=== PATIENT | female | born 1945 | race Caucasian/White ===

== ENCOUNTER → 2016-08-05 | Outpatient (CLI) | payer MEDICARE, OTHER | END | disposition home or self-care (01) | LOC: PCVCCLINIC 11:58 | PROVIDERS: ATTEND Internal Medicine Cardiovascular Disease | DX: I48.91 Unspecified atrial fibrillation (principal); I10 Essential (primary) hypertension; I65.8 Occlusion and stenosis of other precerebral arteries; Z79.82 Long term (current) use of aspirin; Z79.899 Other long term (current) drug therapy; Z90.710 Acquired absence of both cervix and uterus; Z96.653 Presence of artificial knee joint, bilateral; Z87.891 Personal history of nicotine dependence | CPT/HCPCS: 80061; 93005; G0463 ==

== ENCOUNTER → 2016-08-11 | Outpatient (CLI) | payer MEDICARE, OTHER ==
--- NOTE | 2016-08-11 19:36 | PCVCIMAG ---
APPROVED REPORT Study performed: 08/11/2016 16:00:30 EXAM: Comprehensive 2D, Doppler, and color-flow Echocardiogram Status: routine Indications Dyspnea Atrial Fibrillation 2D Dimensions IVSd: 14.69 (7-11mm) LVDd: 39.16 mm PWd: 13.63 (7-11mm) LVDs: 33.25 (25-40mm) Left Atrium: 45.24 (27-40mm) Aortic Root: 34.47 mm LV Single Plane 4CH: 42.90 % LV Single Plane 2CH: 44.49 %Gonsales's LVEF: 43.69 % Biplane EF: 43.3 % Volumes Left Atrial Volume (Systole) Single Plane 4CH: 103.63 mLSingle Plane 2CH: 95.01 mL LA ESV Index: 46.00 mL/m2 Aortic Valve AoV Peak Vargas.: 1.45 m/s AO Peak Gr.: 8.91 mmHgLVOT Max P.65 mmHg LVOT Max V: 0.95 m/s Pulmonary Valve PV Peak Vargas.: 0.82 m/sPV Peak Gr.: 2.75 mmHg Tricuspid Valve TR Peak Vargas.: 2.44 m/s TR Peak Gr.: 24.20 mmHg Left Ventricle The left ventricle is normal size. There is normal LV segmental wall motion. Moderate concentric left ventricular hypertrophy. Left ventricular systolic function is normal. The left ventricular ejection fraction is within the lower limits of normal range. Globally mildly decreased. LVEF is 45-50%. The left ventricular diastolic function is normal. Right Ventricle The right ventricle is normal size. The right ventricular systolic function is normal. Atria Left atrium is moderately- severely dilated. The right atrium size is mildly dilated. Aortic Valve The aortic valve is normal in structure. No aortic regurgitation is present. There is no aortic valvular stenosis. Mitral Valve Moderate posterior mitral annular calcification. Mild to moderate mitral regurgitation. No evidence of mitral valve stenosis. Tricuspid Valve The tricuspid valve is normal in structure. Mild tricuspid regurgitation with PAP of 34 mmHg. Pulmonic Valve The pulmonary valve is normal in structure. There is no pulmonic valvular regurgitation. Great Vessels The aortic root is normal in size. IVC is normal in size and collapses with >50% inspiration Pericardium There is no pericardial effusion. <Conclusion> The left ventricle is normal size. Moderate concentric left ventricular hypertrophy. Moderate concentric left ventricular hypertrophy. Left ventricular systolic function is normal. The left ventricular ejection fraction is within the lower limits of normal range. Globally mildly decreased. LVEF is 45-50%. The right ventricle is normal size. Left atrium is moderately- severely dilated. The right atrium size is mildly dilated. The aortic valve is normal in structure. Mild to moderate mitral regurgitation. Mild tricuspid regurgitation with PAP of 34 mmHg. IVC is normal in size and collapses with >50% inspiration
== END | disposition home or self-care (01) ==
LOC: PCVCIMAG 15:54
PROVIDERS: ATTEND Internal Medicine Cardiovascular Disease
DX: I48.91 Unspecified atrial fibrillation (principal)
CPT/HCPCS: 93306

== ENCOUNTER → 2016-09-01 | Outpatient (CLI) | payer MEDICARE, OTHER | END | disposition home or self-care (01) | LOC: PCVCCLINIC 15:15 | PROVIDERS: ATTEND Internal Medicine Cardiovascular Disease | DX: I10 Essential (primary) hypertension (principal); I48.1 Persistent atrial fibrillation; E78.4 Other hyperlipidemia; G47.33 Obstructive sleep apnea (adult) (pediatric); R01.1 Cardiac murmur, unspecified; Z87.891 Personal history of nicotine dependence; Z79.899 Other long term (current) drug therapy | CPT/HCPCS: 80061; 93005; G0463 ==

== ENCOUNTER → 2017-05-24 | Outpatient (CLI) | payer MEDICARE, OTHER | END | disposition home or self-care (01) | LOC: PCVCCLINIC 15:05 | DX: I48.91 Unspecified atrial fibrillation (principal); E78.00 Pure hypercholesterolemia, unspecified; G47.33 Obstructive sleep apnea (adult) (pediatric); I08.1 Rheumatic disorders of both mitral and tricuspid valves; R94.31 Abnormal electrocardiogram [ECG] [EKG]; Z87.891 Personal history of nicotine dependence; Z79.899 Other long term (current) drug therapy | CPT/HCPCS: 80061; 93005; G0463 ==

== ENCOUNTER → 2017-06-28 | Outpatient (CLI) | payer MEDICARE, OTHER | END | disposition home or self-care (01) | LOC: PCVCCLINIC 13:13 | DX: Z01.818 Encounter for other preprocedural examination (principal); I48.91 Unspecified atrial fibrillation; R06.02 Shortness of breath; I87.303 Chronic venous hypertension (idiopathic) without complications of bilateral lower extremity; I10 Essential (primary) hypertension; R94.31 Abnormal electrocardiogram [ECG] [EKG]; I08.1 Rheumatic disorders of both mitral and tricuspid valves; G47.33 Obstructive sleep apnea (adult) (pediatric); Z87.891 Personal history of nicotine dependence; Z79.899 Other long term (current) drug therapy | CPT/HCPCS: 93005; G0463 ==

== ENCOUNTER → 2017-07-05 | Outpatient (CLI) | payer MEDICARE, OTHER | END | disposition home or self-care (01) | LOC: PCVCIMAG 14:02 | DX: Z01.818 Encounter for other preprocedural examination (principal); I10 Essential (primary) hypertension; R06.00 Dyspnea, unspecified; G47.33 Obstructive sleep apnea (adult) (pediatric); E78.5 Hyperlipidemia, unspecified | CPT/HCPCS: 93306 ==

== ENCOUNTER → 2018-03-17 | Outpatient (CLI) | payer MEDICARE, OTHER | END | disposition home or self-care (01) | LOC: PCVCCLINIC 12:00 | PROVIDERS: ATTEND Internal Medicine Cardiovascular Disease | DX: I48.0 Paroxysmal atrial fibrillation (principal); I10 Essential (primary) hypertension; E78.00 Pure hypercholesterolemia, unspecified; G47.33 Obstructive sleep apnea (adult) (pediatric); R06.02 Shortness of breath; J45.909 Unspecified asthma, uncomplicated; E66.9 Obesity, unspecified; Z79.899 Other long term (current) drug therapy; Z87.891 Personal history of nicotine dependence | CPT/HCPCS: 36415; 80061; 93005; G0463 ==

== ENCOUNTER → 2018-06-13 | Outpatient (CLI) | payer MEDICARE, OTHER | END | disposition home or self-care (01) | LOC: PCVCCLINIC 14:52 | PROVIDERS: ATTEND Internal Medicine Cardiovascular Disease | DX: I48.0 Paroxysmal atrial fibrillation (principal); R60.0 Localized edema; I87.303 Chronic venous hypertension (idiopathic) without complications of bilateral lower extremity; I10 Essential (primary) hypertension; G47.33 Obstructive sleep apnea (adult) (pediatric); J45.909 Unspecified asthma, uncomplicated; E78.5 Hyperlipidemia, unspecified | CPT/HCPCS: 93005; G0463 ==

== ENCOUNTER → 2018-06-15 | Outpatient (CLI) | payer MEDICARE, OTHER ==
--- NOTE | 2018-06-15 15:16 | PCVCIMAG ---
EXAM: BILATERAL LOWER EXTREMITY ARTERIAL DUPLEX INDICATION: Peripheral Arterial Disease. Leg pain. Nonhealing ulcer left lower leg. FINDINGS: Right Leg: Satisfactory arterial waveforms throughout the common/profunda/superficial femoral, popliteal, anterior tibial, peroneal, and posterior tibial arteries. No flow limiting stenosis seen. Left Leg: Satisfactory arterial waveforms throughout the common/profunda/superficial femoral, popliteal, anterior tibial, peroneal, and posterior tibial arteries. No flow limiting stenosis seen. IMPRESSION: No flow limiting stenosis in the right lower extremity. No flow limiting stenosis in the left lower extremity. LOC:[id number]
== END | disposition home or self-care (01) ==
LOC: PCVCIMAG 15:00
PROVIDERS: ATTEND Emergency Medicine
DX: I73.9 Peripheral vascular disease, unspecified (principal); L97.909 Non-pressure chronic ulcer of unspecified part of unspecified lower leg with unspecified severity; S85.8 Injury of other blood vessels at lower leg level; R60.0 Localized edema; X58.XXXA Exposure to other specified factors, initial encounter; Y93.89 Activity, other specified; Y92.89 Other specified places as the place of occurrence of the external cause; Y99.8 Other external cause status
CPT/HCPCS: 93925

== ENCOUNTER → 2018-09-19 | Outpatient (CLI) | payer MEDICARE, OTHER ==
--- NOTE | 2018-09-19 11:10 | PCVCIMAG ---
APPROVED REPORT Study performed: 09/19/2018 10:31:58 EXAM: Comprehensive 2D, Doppler, and color-flow Echocardiogram Patient Location: Echo lab Status: routine BSA: 2.24 HR: 58 bpmBP: 138/78 mmHg Rhythm: Bradycardia Other Information Study Quality: Adequate Risk Factors: Cardiac Risk Factors: HTN Indications Atrial Fibrillation Dyspnea obesity, edema 2D Dimensions IVSd: 13.08 (7-11mm) LVDd: 41.35 mm PWd: 13.08 (7-11mm)Ascending Ao: 38.42 (22-36mm) LVDs: 27.94 (25-40mm) Left Atrium: 45.47 (27-40mm) Aortic Root: 33.56 mm LV Single Plane 4CH: 57.78 % LV Single Plane 2CH: 56.94 % Biplane EF: 57.6 % Volumes Left Atrial Volume (Systole) Single Plane 4CH: 125.82 mLSingle Plane 2CH: 85.24 mL LA ESV Index: 48.00 mL/m2 Aortic Valve AoV Peak Vargas.: 2.28 m/s AO Peak Gr.: 20.78 mmHgLVOT Max P.73 mmHg LVOT Max V: 1.64 m/s Mitral Valve E/A Ratio: 0.8 MV Decel. Time: 259.18 ms MV E Max Vargas.: 0.92 m/s MV A Vargas.: 1.19 m/s IVRT: 100.35 ms Pulmonary Valve PV Peak Vargas.: 0.92 m/sPV Peak Gr.: 3.37 mmHg Pulmonary Vein P Vein S: 0.39 m/sP Vein A: 0.29 m/s P Vein D: 0.53 m/sP Vein A Dur.: 141.9 msec P Vein S/D Ratio: 0.74 Tricuspid Valve TR Peak Vargas.: 2.93 m/s TR Peak Gr.: 34.42 mmHg TV Vmax: 0.80 m/s Left Ventricle The left ventricle is normal size. There is normal LV segmental wall motion. Mild concentric left ventricular hypertrophy. Left ventricular systolic function is normal. The left ventricular ejection fraction is within the normal range. LVEF is 55-60%. Grade I - abnormal relaxation pattern. Right Ventricle The right ventricle is normal size. The right ventricular systolic function is normal. Atria Left atrium is severely dilated. Right atrium is moderately dilated. Aortic Valve The aortic valve is mildly sclerotic. Mild aortic regurgitation. There is no aortic valvular stenosis. LVOT velocity is mildly increased but no obstruction with valsalva maneuver. Mitral Valve The mitral valve is normal in structure. Mild mitral regurgitation. No evidence of mitral valve stenosis. Tricuspid Valve The tricuspid valve is normal in structure. Mild tricuspid regurgitation with PAP of 41 mmHg. Pulmonic Valve The pulmonary valve is normal in structure. There is trace pulmonic valvular regurgitation. Great Vessels The aortic root is normal in size. The ascending aorta is borderline dilated to 3.9 cm. IVC is normal in size and collapses >50% with inspiration. Pericardium There is no pericardial effusion. There is no pleural effusion. <Conclusion> The left ventricle is normal size. LVEF is 55-60%. Grade I - abnormal relaxation pattern. The right ventricle is normal size. Left atrium is severely dilated. Right atrium is moderately dilated. The aortic valve is mildly sclerotic. Mild aortic regurgitation. There is no aortic valvular stenosis. LVOT velocity is mildly increased but no obstruction with valsalva maneuver. Mild mitral regurgitation. Mild tricuspid regurgitation with PAP of 41 mmHg. The aortic root is normal in size. The ascending aorta is borderline dilated to 3.9 cm. There is no pericardial effusion.
== END | disposition home or self-care (01) ==
LOC: PCVCIMAG 10:20
PROVIDERS: ATTEND Internal Medicine Cardiovascular Disease
DX: I08.3 Combined rheumatic disorders of mitral, aortic and tricuspid valves (principal); I48.0 Paroxysmal atrial fibrillation; I10 Essential (primary) hypertension; E78.00 Pure hypercholesterolemia, unspecified; I87.2 Venous insufficiency (chronic) (peripheral); J45.909 Unspecified asthma, uncomplicated; G47.33 Obstructive sleep apnea (adult) (pediatric)
CPT/HCPCS: 36415; 80061; 93005; 93306; G0463